=== PATIENT | female | born 1960 | race Caucasian/White ===

== ENCOUNTER 2021-06-27 13:12 | Inpatient (IN) ==
[2021-06-27 15:42] LABS: Basophils % 0.1 %; Hematocrit 25.8 % (35.3-44.9); Immature Granulocytes % 0.7 % (0-4); Lymphocytes # 0.8 K/mcL (0.6-4.6); Lymphocytes % 9.3 %; Mean Corpuscular Hemoglobin 25.9 pg (28.0-33.3); Mean Corpuscular Volume 83.5 fL (83.0-100.0); Mean Platelet Volume 9.8 fL (9.4-12.4); Monocytes # 0.3 K/mcL (0.0-1.3); Monocytes % 2.8 %; Neutrophils # 7.8 K/mcL (1.6-8.9); Platelet Count 433 K/mcL (140-400); Red Blood Count 3.09 M/mcL (3.82-4.97); Red Cell Distribution Width 16.2 % (11.5-14.5); Segmented Neutrophils % 87.1 %
[2021-06-27 15:56] LABS: BUN/Creatinine Ratio 23 (6-26); Blood Urea Nitrogen 25 mg/dL (8-23); Calcium 9.1 mg/dL (8.6-10.3); Carbon Dioxide 25 mEq/L (23-29); Chloride 103 mEq/L (98-107); Glucose 111 mg/dL (70-105); Osmolality,Calculated 291 (280-300); Potassium 4.1 mEq/L (3.5-5.1); Sodium 138 mEq/L (136-145); eGFR For African Americans > 60 (> 60); eGFR For Non-African Americans 51 (> 60)
[2021-06-27 15:57] LABS: Troponin I < 0.03 ng/mL (< 0.04)
[2021-06-27] MEDS ORDERED: levoFLOXacin 750 MG/150 ML 750 MG/150 ML BAG IVPB ONE (18:36)
[2021-06-27] MEDS ORDERED: Naloxone 0.4 MG/ML INJ IVP PRN (23:47)
[2021-06-27] MEDS ORDERED: *HR* HYDROcodone/Acet 5/325 mg TABLET PO PRN (23:47)
[2021-06-27] MEDS ORDERED: Melatonin 3 MG TABLET PO PRN (23:47)
[2021-06-27] MEDS ORDERED: Ondansetron 4 MG/2 ML VIAL IVP PRN (23:47)
[2021-06-27] MEDS ORDERED: Acetaminophen 325 MG TABLET PO PRN (23:47)
[2021-06-27] MEDS ORDERED: Saliva Stimulant 44.3ml BOTTLE PO PRN (23:48)
[2021-06-27] MEDS ORDERED: Saline Nasal Spray 44 ML BOTTLE NS PRN (23:48)
[2021-06-27] MEDS ORDERED: Chloraseptic Spray 177 ML BOTTLE MM PRN (23:48)
[2021-06-27] MEDS ORDERED: [UNRECOGNIZED DRUG - OTHER] PO PRN (23:53)
[2021-06-27] MEDS ORDERED: Sennosides 8.6 MG TABLET PO PRN (23:53)
[2021-06-27] MEDS ORDERED: CHLORPHENIRAMINE PO PRN (23:53)
[2021-06-27] MEDS ORDERED: HYDROCODONE PO PRN (23:53)
[2021-06-28] MEDS ORDERED: *HR* OxyCODONE/APAP 10/325 TABLET PO PRN (00:03)
[2021-06-28] MEDS: Apixaban 2.5 MG TABLET PO SCH ×3 (00:46→20:21)
[2021-06-28] MEDS: Pregabalin 50 MG CAPSULE PO SCH ×3 (00:46→20:21)
[2021-06-28] MEDS: Ipratropium 1 PUFF INHALER IH SCH ×4 (05:11→20:06)
[2021-06-28 06:00] LABS: Basophils % 0.1 %; Eosinophils % 0.3 %; Hematocrit 27.9 % (35.3-44.9); Hemoglobin 8.3 g/dL (11.5-15.4); Immature Granulocytes % 0.5 % (0-4); Lymphocytes # 1.9 K/mcL (0.6-4.6); Lymphocytes % 15.7 %; Mean Corpuscular HGB Conc 29.7 g/dL (31.6-35.5); Mean Corpuscular Hemoglobin 25.5 pg (28.0-33.3); Mean Corpuscular Volume 85.8 fL (83.0-100.0); Mean Platelet Volume 10.2 fL (9.4-12.4); Monocytes # 0.8 K/mcL (0.0-1.3); Monocytes % 7.1 %; Platelet Count 469 K/mcL (140-400); Red Blood Count 3.25 M/mcL (3.82-4.97); Red Cell Distribution Width 16.3 % (11.5-14.5); Segmented Neutrophils % 76.3 %; White Blood Count 11.8 K/mcL (4.3-11.1)
[2021-06-28 06:09] LABS: INR 1.7; Prothrombin Time 18.8 Seconds (9.4-12.1)
[2021-06-28 06:16] LABS: Calcium 9.1 mg/dL (8.6-10.3); Phosphorous 2.9 mg/dL (2.7-4.5); Potassium 3.9 mEq/L (3.5-5.1)
[2021-06-28 07:32] LABS: Lactate Dehydrogenase 377 Units/L (140-271)
[2021-06-28] MEDS: FLUoxetine 20 MG CAPSULE PO SCH (10:39)
[2021-06-28] MEDS: Multivit/Ca/Min/Fe/FA 1 TAB TABLET PO SCH (10:39)
[2021-06-28] MEDS: Aspirin 81 MG TAB.CHEW PO SCH (10:40)
[2021-06-28] MEDS: Lactobacillus 1 EACH CAP.SPRINK PO SCH ×2 (10:40→20:21)
[2021-06-28] MEDS: Chlorhexidine Rinse 15 ML MOUTHWASH MM SCH ×2 (10:40→20:21)
[2021-06-28] MEDS: Cholecalciferol (D-3) 1,000 UNIT (25MCG) TABLET PO SCH (10:40)
[2021-06-28] MEDS: Artificial Tears SOLN 15 ML BOTTLE BOTH EYES SCH ×2 (10:42→20:21)
[2021-06-28] MEDS ORDERED: Dexamethasone Sodium Phos/PF 10 MG/ML VIAL IVP ONE (12:00)
[2021-06-28 13:20] LABS: Albumin 3.5 g/dL (3.5-5.7); Bilirubin,Direct 0.1 mg/dL (0.0-0.2); Bilirubin,Indirect 0.2 mg/dL (0.0-1.0); Bilirubin,Total 0.3 mg/dL (0.3-1.0); Globulin 3.4 g/dL (2.4-3.5); Total Protein 6.9 g/dL (6.4-8.9)
[2021-06-28 13:32] LABS: C-Reactive Protein 44 mg/L (Less than 10)
[2021-06-28] MEDS: ALPRAZolam 0.5 MG TABLET PO PRN (14:18)
[2021-06-28] MEDS ORDERED: Remdesivir 200 MG in 0.9 % Sodium Chloride 100 ML IVPB ONE (16:00)
[2021-06-28] MEDS: SOTORASIB 120 MG PO SCH (18:41)
[2021-06-28] MEDS ORDERED: levoFLOXacin 750 MG/150 ML 750 MG/150 ML BAG IVPB SCH (19:00)
[2021-06-28] MEDS: levoFLOXacin 750 MG/150 ML 750 MG/150 ML BAG IVPB SCH (20:20)
[2021-06-29] MEDS: ALPRAZolam 0.5 MG TABLET PO PRN ×2 (04:34→22:20)
[2021-06-29] MEDS: Ipratropium 1 PUFF INHALER IH SCH ×4 (05:34→19:15)
[2021-06-29 06:13] LABS: Hematocrit 25.8 % (35.3-44.9); Hemoglobin 7.7 g/dL (11.5-15.4); Mean Corpuscular HGB Conc 29.8 g/dL (31.6-35.5); Mean Corpuscular Hemoglobin 25.6 pg (28.0-33.3); Mean Corpuscular Volume 85.7 fL (83.0-100.0); Platelet Count 419 K/mcL (140-400); Red Blood Count 3.01 M/mcL (3.82-4.97); Red Cell Distribution Width 16.2 % (11.5-14.5); White Blood Count 11.4 K/mcL (4.3-11.1)
[2021-06-29 07:34] LABS: Albumin 3.4 g/dL (3.5-5.7); Albumin/Globulin Ratio 1.1 (1.1-2.2); Bilirubin,Direct 0.1 mg/dL (0.0-0.2); Bilirubin,Indirect 0.2 mg/dL (0.0-1.0); Bilirubin,Total 0.3 mg/dL (0.3-1.0); Calcium 9.3 mg/dL (8.6-10.3); Globulin 3.2 g/dL (2.4-3.5); Magnesium 1.9 mg/dL (1.6-2.6); Total Protein 6.6 g/dL (6.4-8.9)
[2021-06-29] MEDS: FLUoxetine 20 MG CAPSULE PO SCH (08:32)
[2021-06-29] MEDS: Multivit/Ca/Min/Fe/FA 1 TAB TABLET PO SCH (08:33)
[2021-06-29] MEDS: Pregabalin 50 MG CAPSULE PO SCH ×2 (08:33→20:29)
[2021-06-29] MEDS: Cholecalciferol (D-3) 1,000 UNIT (25MCG) TABLET PO SCH (08:33)
[2021-06-29] MEDS: Apixaban 2.5 MG TABLET PO SCH ×2 (08:33→20:30)
[2021-06-29] MEDS: Aspirin 81 MG TAB.CHEW PO SCH (08:33)
[2021-06-29] MEDS: Chlorhexidine Rinse 15 ML MOUTHWASH MM SCH ×2 (08:33→20:29)
[2021-06-29] MEDS: Lactobacillus 1 EACH CAP.SPRINK PO SCH ×2 (08:33→20:30)
[2021-06-29] MEDS: Artificial Tears SOLN 15 ML BOTTLE BOTH EYES SCH ×2 (08:33→20:30)
[2021-06-29] MEDS ORDERED: Cholecalciferol (D-3) 1,000 UNIT (25MCG) TABLET PO SCH (09:00)
[2021-06-29] MEDS: SOTORASIB 120 MG PO SCH (14:24)
[2021-06-29] MEDS: Remdesivir 100 MG in 0.9 % Sodium Chloride 100 ML IVPB SCH (17:35)
[2021-06-29] MEDS: levoFLOXacin 750 MG/150 ML 750 MG/150 ML BAG IVPB SCH (20:30)
[2021-06-30] MEDS: Ipratropium 1 PUFF INHALER IH SCH ×4 (03:40→22:12)
[2021-06-30 06:23] LABS: Albumin 3.4 g/dL (3.5-5.7); Albumin/Globulin Ratio 1.1 (1.1-2.2); Bilirubin,Direct 0.1 mg/dL (0.0-0.2); Bilirubin,Indirect 0.2 mg/dL (0.0-1.0); Bilirubin,Total 0.3 mg/dL (0.3-1.0); Total Protein 6.4 g/dL (6.4-8.9)
[2021-06-30] MEDS: Apixaban 2.5 MG TABLET PO SCH ×2 (09:35→20:04)
[2021-06-30] MEDS: Pregabalin 50 MG CAPSULE PO SCH ×2 (09:35→20:05)
[2021-06-30] MEDS: Multivit/Ca/Min/Fe/FA 1 TAB TABLET PO SCH (09:35)
[2021-06-30] MEDS: Lactobacillus 1 EACH CAP.SPRINK PO SCH ×2 (09:35→20:05)
[2021-06-30] MEDS: Aspirin 81 MG TAB.CHEW PO SCH (09:36)
[2021-06-30] MEDS: FLUoxetine 20 MG CAPSULE PO SCH (09:36)
[2021-06-30] MEDS: Chlorhexidine Rinse 15 ML MOUTHWASH MM SCH ×2 (09:36→20:05)
[2021-06-30] MEDS: Cholecalciferol (D-3) 1,000 UNIT (25MCG) TABLET PO SCH (09:36)
[2021-06-30] MEDS: Artificial Tears SOLN 15 ML BOTTLE BOTH EYES SCH ×2 (10:07→20:05)
[2021-06-30 11:18] LABS: Basophils % 0.1 %; Eosinophils % 0.2 %; Hematocrit 27.1 % (35.3-44.9); Hemoglobin 8.4 g/dL (11.5-15.4); Immature Granulocytes % 0.6 % (0-4); Lymphocytes # 1.7 K/mcL (0.6-4.6); Lymphocytes % 9.9 %; Mean Corpuscular Hemoglobin 26.5 pg (28.0-33.3); Mean Corpuscular Volume 85.5 fL (83.0-100.0); Mean Platelet Volume 9.9 fL (9.4-12.4); Monocytes # 1.1 K/mcL (0.0-1.3); Monocytes % 6.2 %; Neutrophils # 14.3 K/mcL (1.6-8.9); Platelet Count 473 K/mcL (140-400); Red Blood Count 3.17 M/mcL (3.82-4.97); Red Cell Distribution Width 16.3 % (11.5-14.5); White Blood Count 17.2 K/mcL (4.3-11.1)
[2021-06-30 11:37] LABS: Albumin 3.5 g/dL (3.5-5.7); Albumin/Globulin Ratio 1.1 (1.1-2.2); Bilirubin,Total 0.3 mg/dL (0.3-1.0); Calcium 9.7 mg/dL (8.6-10.3); Globulin 3.1 g/dL (2.4-3.5); Potassium 3.8 mEq/L (3.5-5.1); Total Protein 6.6 g/dL (6.4-8.9)
[2021-06-30] MEDS: Remdesivir 100 MG in 0.9 % Sodium Chloride 100 ML IVPB SCH (17:24)
[2021-06-30] MEDS: SOTORASIB 120 MG PO SCH (17:42)
[2021-06-30 19:45] LABS: Ferritin 62 ng/mL (10-120)
[2021-06-30] MEDS: levoFLOXacin 750 MG/150 ML 750 MG/150 ML BAG IVPB SCH (20:05)
[2021-06-30] MEDS: ALPRAZolam 0.5 MG TABLET PO PRN (21:51)
[2021-07-01] MEDS: Ipratropium 1 PUFF INHALER IH SCH ×2 (04:03→11:19)
[2021-07-01 05:36] LABS: Hematocrit 25.3 % (35.3-44.9); Hemoglobin 7.8 g/dL (11.5-15.4); Mean Corpuscular HGB Conc 30.8 g/dL (31.6-35.5); Mean Corpuscular Hemoglobin 26.1 pg (28.0-33.3); Mean Corpuscular Volume 84.6 fL (83.0-100.0); Mean Platelet Volume 9.9 fL (9.4-12.4); Platelet Count 417 K/mcL (140-400); Red Blood Count 2.99 M/mcL (3.82-4.97); Red Cell Distribution Width 16.4 % (11.5-14.5); White Blood Count 14.8 K/mcL (4.3-11.1)
[2021-07-01 05:52] LABS: Albumin 3.4 g/dL (3.5-5.7); Albumin/Globulin Ratio 1.2 (1.1-2.2); Bilirubin,Direct 0.1 mg/dL (0.0-0.2); Bilirubin,Indirect 0.2 mg/dL (0.0-1.0); Bilirubin,Total 0.3 mg/dL (0.3-1.0); Globulin 2.9 g/dL (2.4-3.5); Total Protein 6.3 g/dL (6.4-8.9)
[2021-07-01 05:53] LABS: Albumin 3.4 g/dL (3.5-5.7); Albumin/Globulin Ratio 1.2 (1.1-2.2); Bilirubin,Total 0.3 mg/dL (0.3-1.0); Calcium 9.3 mg/dL (8.6-10.3); Globulin 2.9 g/dL (2.4-3.5); Potassium 3.7 mEq/L (3.5-5.1); Total Protein 6.3 g/dL (6.4-8.9)
[2021-07-01] MEDS: Chlorhexidine Rinse 15 ML MOUTHWASH MM SCH (09:15)
[2021-07-01] MEDS: Pregabalin 50 MG CAPSULE PO SCH (09:15)
[2021-07-01] MEDS: FLUoxetine 20 MG CAPSULE PO SCH (09:16)
[2021-07-01] MEDS: Multivit/Ca/Min/Fe/FA 1 TAB TABLET PO SCH (09:16)
[2021-07-01] MEDS: Cholecalciferol (D-3) 1,000 UNIT (25MCG) TABLET PO SCH (09:16)
[2021-07-01] MEDS: Apixaban 2.5 MG TABLET PO SCH (09:16)
[2021-07-01] MEDS: Aspirin 81 MG TAB.CHEW PO SCH (09:16)
[2021-07-01] MEDS: Lactobacillus 1 EACH CAP.SPRINK PO SCH (09:16)
[2021-07-01] MEDS: Artificial Tears SOLN 15 ML BOTTLE BOTH EYES SCH ×2 (09:16→09:46)
[2021-07-01 11:20] VITALS: O2SAT 93
[2021-07-01 12:02] VITALS: BP 109/66; PULSE 86; RESP 17; TEMP 97.5
== END 2021-07-01 13:54 | disposition other institution (70) | DRG 177 ==
LOC: EMEROOGRE 13:12 → INPGRE 13:12
PROVIDERS: ADMIT Family Medicine; ATTEND Family Medicine

== ENCOUNTER 2021-07-01 13:18 | Inpatient (IN) ==
[2021-07-01] MEDS ORDERED: *HR* OxyCODONE/APAP 10/325 TABLET PO PRN (14:09)
[2021-07-01] MEDS ORDERED: Nystatin SUSP 5 ML UD.LIQ PO PRN (14:09)
[2021-07-01] MEDS ORDERED: Diphenoxylate/Atropine 1 TAB TABLET PO PRN (14:09)
[2021-07-01] MEDS ORDERED: Ondansetron ODT 4 MG TAB.RAPDIS SL PRN (14:09)
[2021-07-01] MEDS ORDERED: [UNRECOGNIZED DRUG - OTHER] PO PRN (15:00)
[2021-07-01] MEDS ORDERED: CHLORPHENIRAMINE PO PRN (15:00)
[2021-07-01] MEDS ORDERED: HYDROCODONE PO PRN (15:00)
[2021-07-01] MEDS ORDERED: *HR* HYDROcodone/Acet 5/325 mg TABLET PO PRN (15:01)
[2021-07-01] MEDS ORDERED: Remdesivir 200 MG in 0.9 % Sodium Chloride 100 ML IVPB ONE (16:00)
[2021-07-01] MEDS: Remdesivir 100 MG in 0.9 % Sodium Chloride 100 ML IVPB SCH (17:12)
[2021-07-01] MEDS: Pregabalin 50 MG CAPSULE PO SCH (21:27)
[2021-07-01] MEDS: Apixaban 2.5 MG TABLET PO SCH (21:27)
[2021-07-01] MEDS ORDERED: levoFLOXacin 750 MG/150 ML 750 MG/150 ML BAG IVPB SCH (23:00)
[2021-07-02 04:49] LABS: Basophils % 0.1 %; Hemoglobin 7.8 g/dL (11.5-15.4); Immature Granulocytes % 0.7 % (0-4); Lymphocytes # 1.3 K/mcL (0.6-4.6); Mean Corpuscular HGB Conc 31.2 g/dL (31.6-35.5); Mean Corpuscular Hemoglobin 26.3 pg (28.0-33.3); Mean Corpuscular Volume 84.2 fL (83.0-100.0); Mean Platelet Volume 10.2 fL (9.4-12.4); Neutrophils # 14.2 K/mcL (1.6-8.9); Platelet Count 430 K/mcL (140-400); Red Blood Count 2.97 M/mcL (3.82-4.97); Red Cell Distribution Width 16.5 % (11.5-14.5); Segmented Neutrophils % 85.2 %; White Blood Count 16.7 K/mcL (4.3-11.1)
[2021-07-02 05:01] LABS: Albumin 3.4 g/dL (3.5-5.7); Albumin/Globulin Ratio 1.2 (1.1-2.2); Bilirubin,Direct 0.1 mg/dL (0.0-0.2); Bilirubin,Indirect 0.2 mg/dL (0.0-1.0); Bilirubin,Total 0.3 mg/dL (0.3-1.0); Globulin 2.9 g/dL (2.4-3.5); Total Protein 6.3 g/dL (6.4-8.9)
[2021-07-02 05:02] LABS: Calcium 9.3 mg/dL (8.6-10.3); Potassium 3.9 mEq/L (3.5-5.1)
[2021-07-02] MEDS: Apixaban 2.5 MG TABLET PO SCH ×2 (08:49→21:06)
[2021-07-02] MEDS: Lactobacillus 1 EACH CAP.SPRINK PO SCH (08:49)
[2021-07-02] MEDS: FLUoxetine 20 MG CAPSULE PO SCH (08:49)
[2021-07-02] MEDS: Aspirin 81 MG TAB.CHEW PO SCH (08:49)
[2021-07-02] MEDS: Vitamin B Complex/Vit C/Vit E 1 EACH TABLET PO SCH (08:49)
[2021-07-02] MEDS: Pregabalin 50 MG CAPSULE PO SCH ×2 (08:50→21:06)
[2021-07-02] MEDS: dexAMETHasone 4 MG TABLET PO SCH (08:50)
[2021-07-02] MEDS: TURMERIC ROOT EXTRACT 500 MG PO SCH (08:55)
[2021-07-02] MEDS: Sennosides 8.6 MG TABLET PO PRN (08:55)
[2021-07-02] MEDS: LEVOCARNITINE TARTRATE 500 MG PO SCH (08:55)
[2021-07-02] MEDS: Ubidecarenone [Co Q-10] 10 MG Capsule PO SCH (08:55)
[2021-07-02] MEDS ORDERED: levoFLOXacin 750 MG/150 ML 750 MG/150 ML BAG IVPB SCH (09:00)
[2021-07-02] MEDS: Remdesivir 100 MG in 0.9 % Sodium Chloride 100 ML IVPB SCH (16:50)
[2021-07-03 04:47] LABS: Albumin 3.3 g/dL (3.5-5.7); Albumin/Globulin Ratio 1.1 (1.1-2.2); Bilirubin,Direct 0.1 mg/dL (0.0-0.2); Bilirubin,Indirect 0.2 mg/dL (0.0-1.0); Bilirubin,Total 0.3 mg/dL (0.3-1.0); Globulin 2.9 g/dL (2.4-3.5); Total Protein 6.2 g/dL (6.4-8.9)
[2021-07-03] MEDS: Vitamin B Complex/Vit C/Vit E 1 EACH TABLET PO SCH (07:48)
[2021-07-03] MEDS: dexAMETHasone 4 MG TABLET PO SCH (07:48)
[2021-07-03] MEDS: Lactobacillus 1 EACH CAP.SPRINK PO SCH (07:48)
[2021-07-03] MEDS: Sennosides 8.6 MG TABLET PO PRN (07:48)
[2021-07-03] MEDS: Pregabalin 50 MG CAPSULE PO SCH ×2 (07:49→20:12)
[2021-07-03] MEDS: TURMERIC ROOT EXTRACT 500 MG PO SCH (07:49)
[2021-07-03] MEDS: Apixaban 2.5 MG TABLET PO SCH ×2 (07:49→20:12)
[2021-07-03] MEDS: Ubidecarenone [Co Q-10] 10 MG Capsule PO SCH (07:49)
[2021-07-03] MEDS: Aspirin 81 MG TAB.CHEW PO SCH (07:49)
[2021-07-03] MEDS: FLUoxetine 20 MG CAPSULE PO SCH (07:49)
[2021-07-03] MEDS: LEVOCARNITINE TARTRATE 500 MG PO SCH (07:49)
[2021-07-04 05:42] LABS: Basophils % 0.1 %; Eosinophils % 0.1 %; Hematocrit 25.3 % (35.3-44.9); Hemoglobin 7.9 g/dL (11.5-15.4); Immature Granulocytes % 0.7 % (0-4); Lymphocytes # 1.5 K/mcL (0.6-4.6); Lymphocytes % 7.7 %; Mean Corpuscular HGB Conc 31.2 g/dL (31.6-35.5); Mean Corpuscular Hemoglobin 26.4 pg (28.0-33.3); Mean Corpuscular Volume 84.6 fL (83.0-100.0); Mean Platelet Volume 10.2 fL (9.4-12.4); Neutrophils # 16.3 K/mcL (1.6-8.9); Platelet Count 375 K/mcL (140-400); Red Blood Count 2.99 M/mcL (3.82-4.97); Red Cell Distribution Width 16.7 % (11.5-14.5); Segmented Neutrophils % 84.4 %; White Blood Count 19.3 K/mcL (4.3-11.1)
[2021-07-04 05:56] LABS: BUN/Creatinine Ratio 34 (6-26); Blood Urea Nitrogen 35 mg/dL (8-23); Calcium 8.9 mg/dL (8.6-10.3); Carbon Dioxide 28 mEq/L (23-29); Chloride 103 mEq/L (98-107); Glucose 90 mg/dL (70-105); Magnesium 1.8 mg/dL (1.6-2.6); Osmolality,Calculated 294 (280-300); Potassium 3.5 mEq/L (3.5-5.1); Sodium 138 mEq/L (136-145); eGFR For African Americans > 60 (> 60); eGFR For Non-African Americans 54 (> 60)
[2021-07-04 05:57] LABS: Albumin 3.2 g/dL (3.5-5.7); Albumin/Globulin Ratio 1.1 (1.1-2.2); Bilirubin,Indirect 0.3 mg/dL (0.0-1.0); Bilirubin,Total 0.3 mg/dL (0.3-1.0); Globulin 2.8 g/dL (2.4-3.5)
[2021-07-04 07:03] LABS: Monocytes # 1.4 K/mcL (0.0-1.3)
[2021-07-04] MEDS: Cholecalciferol (D-3) 1,000 UNIT (25MCG) TABLET PO SCH (08:56)
[2021-07-04] MEDS: Lactobacillus 1 EACH CAP.SPRINK PO SCH (08:56)
[2021-07-04] MEDS: Vitamin B Complex/Vit C/Vit E 1 EACH TABLET PO SCH (08:56)
[2021-07-04] MEDS: Apixaban 2.5 MG TABLET PO SCH ×2 (08:57→20:23)
[2021-07-04] MEDS: dexAMETHasone 4 MG TABLET PO SCH (08:57)
[2021-07-04] MEDS: Pregabalin 50 MG CAPSULE PO SCH ×2 (08:57→20:23)
[2021-07-04] MEDS: Aspirin 81 MG TAB.CHEW PO SCH (08:57)
[2021-07-04] MEDS: FLUoxetine 20 MG CAPSULE PO SCH (08:57)
[2021-07-04] MEDS: TURMERIC ROOT EXTRACT 500 MG PO SCH (08:58)
[2021-07-04] MEDS: LEVOCARNITINE TARTRATE 500 MG PO SCH (08:58)
[2021-07-04] MEDS: Ubidecarenone [Co Q-10] 10 MG Capsule PO SCH (08:58)
[2021-07-04] MEDS: Acetaminophen 325 MG TABLET PO PRN (16:03)
[2021-07-05 05:47] LABS: Albumin 3.3 g/dL (3.5-5.7); Albumin/Globulin Ratio 1.2 (1.1-2.2); Bilirubin,Direct 0.1 mg/dL (0.0-0.2); Bilirubin,Indirect 0.3 mg/dL (0.0-1.0); Bilirubin,Total 0.4 mg/dL (0.3-1.0); Globulin 2.7 g/dL (2.4-3.5)
[2021-07-05] MEDS: Aspirin 81 MG TAB.CHEW PO SCH (09:35)
[2021-07-05] MEDS: Acetaminophen 325 MG TABLET PO PRN (09:35)
[2021-07-05] MEDS: Vitamin B Complex/Vit C/Vit E 1 EACH TABLET PO SCH (09:36)
[2021-07-05] MEDS: Lactobacillus 1 EACH CAP.SPRINK PO SCH (09:36)
[2021-07-05] MEDS: Sennosides 8.6 MG TABLET PO PRN (09:36)
[2021-07-05] MEDS: FLUoxetine 20 MG CAPSULE PO SCH (09:36)
[2021-07-05] MEDS: dexAMETHasone 4 MG TABLET PO SCH (09:36)
[2021-07-05] MEDS: Pregabalin 50 MG CAPSULE PO SCH ×2 (09:37→20:35)
[2021-07-05] MEDS: Apixaban 2.5 MG TABLET PO SCH ×2 (09:37→20:35)
[2021-07-06 06:23] LABS: Hematocrit 24.1 % (35.3-44.9); Hemoglobin 7.7 g/dL (11.5-15.4); Mean Corpuscular Hemoglobin 26.5 pg (28.0-33.3); Mean Corpuscular Volume 82.8 fL (83.0-100.0); Mean Platelet Volume 9.9 fL (9.4-12.4); Platelet Count 330 K/mcL (140-400); Red Blood Count 2.91 M/mcL (3.82-4.97); Red Cell Distribution Width 16.8 % (11.5-14.5); White Blood Count 18.8 K/mcL (4.3-11.1)
[2021-07-06 06:42] LABS: Albumin 3.2 g/dL (3.5-5.7); Albumin/Globulin Ratio 1.2 (1.1-2.2); Bilirubin,Direct 0.1 mg/dL (0.0-0.2); Bilirubin,Indirect 0.3 mg/dL (0.0-1.0); Bilirubin,Total 0.4 mg/dL (0.3-1.0); Globulin 2.6 g/dL (2.4-3.5); Total Protein 5.8 g/dL (6.4-8.9)
[2021-07-06 06:45] LABS: Alanine Aminotransferase 14 Units/L (7-52); Albumin 3.2 g/dL (3.5-5.7); Albumin/Globulin Ratio 1.2 (1.1-2.2); Alkaline Phosphatase 66 Units/L (34-104); Aspartate Amino Transferase 18 Units/L (13-39); BUN/Creatinine Ratio 30 (6-26); Bilirubin,Total 0.4 mg/dL (0.3-1.0); Blood Urea Nitrogen 32 mg/dL (8-23); Calcium 8.9 mg/dL (8.6-10.3); Carbon Dioxide 30 mEq/L (23-29); Chloride 103 mEq/L (98-107); Globulin 2.6 g/dL (2.4-3.5); Glucose 80 mg/dL (70-105); Magnesium 1.7 mg/dL (1.6-2.6); Osmolality,Calculated 292 (280-300); Potassium 3.6 mEq/L (3.5-5.1); Sodium 138 mEq/L (136-145); Total Protein 5.8 g/dL (6.4-8.9); eGFR For African Americans > 60 (> 60); eGFR For Non-African Americans 51 (> 60)
[2021-07-06] MEDS: Vitamin B Complex/Vit C/Vit E 1 EACH TABLET PO SCH (09:47)
[2021-07-06] MEDS: Cholecalciferol (D-3) 1,000 UNIT (25MCG) TABLET PO SCH (09:47)
[2021-07-06] MEDS: Pregabalin 50 MG CAPSULE PO SCH ×2 (09:47→20:22)
[2021-07-06] MEDS: Sennosides 8.6 MG TABLET PO PRN ×2 (09:48→20:21)
[2021-07-06] MEDS: Lactobacillus 1 EACH CAP.SPRINK PO SCH (09:48)
[2021-07-06] MEDS: Apixaban 2.5 MG TABLET PO SCH ×2 (09:48→20:22)
[2021-07-06] MEDS: Aspirin 81 MG TAB.CHEW PO SCH (09:49)
[2021-07-06] MEDS: FLUoxetine 20 MG CAPSULE PO SCH (09:49)
[2021-07-07] MEDS: Vitamin B Complex/Vit C/Vit E 1 EACH TABLET PO SCH (08:40)
[2021-07-07] MEDS: Aspirin 81 MG TAB.CHEW PO SCH (08:40)
[2021-07-07] MEDS: FLUoxetine 20 MG CAPSULE PO SCH (08:40)
[2021-07-07] MEDS: Apixaban 2.5 MG TABLET PO SCH ×2 (08:41→20:55)
[2021-07-07] MEDS: Lactobacillus 1 EACH CAP.SPRINK PO SCH (08:41)
[2021-07-07] MEDS: Pregabalin 50 MG CAPSULE PO SCH ×2 (08:42→20:54)
[2021-07-07] MEDS: Sennosides 8.6 MG TABLET PO PRN (09:08)
[2021-07-07] MEDS: polyethylene glycoL 3350 17 GM POWD.PACK PO SCH (20:54)
[2021-07-07] MEDS: Acetaminophen 325 MG TABLET PO PRN (20:55)
[2021-07-08] MEDS: FLUoxetine 20 MG CAPSULE PO SCH (08:41)
[2021-07-08] MEDS: Cholecalciferol (D-3) 1,000 UNIT (25MCG) TABLET PO SCH (08:41)
[2021-07-08] MEDS: Apixaban 2.5 MG TABLET PO SCH ×2 (08:41→20:20)
[2021-07-08] MEDS: Lactobacillus 1 EACH CAP.SPRINK PO SCH (08:41)
[2021-07-08] MEDS: Pregabalin 50 MG CAPSULE PO SCH ×2 (08:41→20:20)
[2021-07-08] MEDS: Vitamin B Complex/Vit C/Vit E 1 EACH TABLET PO SCH (08:42)
[2021-07-08] MEDS: Aspirin 81 MG TAB.CHEW PO SCH (08:42)
[2021-07-08] MEDS: polyethylene glycoL 3350 17 GM POWD.PACK PO SCH ×2 (08:42→19:19)
[2021-07-08 11:32] LABS: Bilirubin,Urine Negative (Negative); Blood,Urine Small (Negative); Clarity,Urine Clear (Clear); Color,Urine Yellow (Yellow); Glucose,Urine (UA) Normal (Normal); Ketones,Urine Negative (Negative); Leukocyte Esterase,Urine Negative (Negative); Nitrite,Urine Negative (Negative); Protein,Urine 30 mg/dL (Neg-Trace); Urobilinogen,Urine Normal (Normal)
[2021-07-08 11:39] LABS: WBC,Urine 0-3 per hpf (0-3)
[2021-07-08 11:40] LABS: Squamous Epithelial Cell,Urine Few per hpf (None-Few)
[2021-07-08] MEDS: Acetaminophen 325 MG TABLET PO PRN (20:19)
[2021-07-09] MEDS: Aspirin 81 MG TAB.CHEW PO SCH (07:48)
[2021-07-09] MEDS: FLUoxetine 20 MG CAPSULE PO SCH (07:48)
[2021-07-09] MEDS: Vitamin B Complex/Vit C/Vit E 1 EACH TABLET PO SCH (07:48)
[2021-07-09] MEDS: Apixaban 2.5 MG TABLET PO SCH ×2 (07:49→20:56)
[2021-07-09] MEDS: Lactobacillus 1 EACH CAP.SPRINK PO SCH (07:49)
[2021-07-09] MEDS: polyethylene glycoL 3350 17 GM POWD.PACK PO SCH ×2 (07:49→20:51)
[2021-07-09] MEDS: Pregabalin 50 MG CAPSULE PO SCH ×2 (07:49→20:55)
[2021-07-10] MEDS: Aspirin 81 MG TAB.CHEW PO SCH (09:05)
[2021-07-10] MEDS: Lactobacillus 1 EACH CAP.SPRINK PO SCH (09:05)
[2021-07-10] MEDS: Vitamin B Complex/Vit C/Vit E 1 EACH TABLET PO SCH (09:05)
[2021-07-10] MEDS: polyethylene glycoL 3350 17 GM POWD.PACK PO SCH ×2 (09:05→21:23)
[2021-07-10] MEDS: Apixaban 2.5 MG TABLET PO SCH ×2 (09:06→21:20)
[2021-07-10] MEDS: FLUoxetine 20 MG CAPSULE PO SCH (09:06)
[2021-07-10] MEDS: Pregabalin 50 MG CAPSULE PO SCH ×2 (09:07→21:20)
[2021-07-10] MEDS: ALPRAZolam 0.5 MG TABLET PO PRN (21:22)
[2021-07-10] MEDS: Acetaminophen 325 MG TABLET PO PRN (21:23)
[2021-07-11 05:14] LABS: Basophils % 0.2 %; Eosinophils # 0.2 K/mcL (0.0-0.6); Hematocrit 20.9 % (35.3-44.9); Hemoglobin 6.5 g/dL (11.5-15.4); Immature Granulocytes % 0.4 % (0-4); Lymphocytes # 0.9 K/mcL (0.6-4.6); Lymphocytes % 5.6 %; Mean Corpuscular HGB Conc 31.1 g/dL (31.6-35.5); Mean Corpuscular Volume 83.6 fL (83.0-100.0); Mean Platelet Volume 10.1 fL (9.4-12.4); Monocytes # 1.3 K/mcL (0.0-1.3); Monocytes % 8.5 %; Neutrophils # 12.9 K/mcL (1.6-8.9); Platelet Count 302 K/mcL (140-400); Red Cell Distribution Width 17.2 % (11.5-14.5); Segmented Neutrophils % 84.3 %; White Blood Count 15.3 K/mcL (4.3-11.1)
[2021-07-11 05:35] LABS: Alanine Aminotransferase 11 Units/L (7-52); Albumin/Globulin Ratio 1.1 (1.1-2.2); Alkaline Phosphatase 69 Units/L (34-104); Aspartate Amino Transferase 16 Units/L (13-39); BUN/Creatinine Ratio 17 (6-26); Bilirubin,Total 0.4 mg/dL (0.3-1.0); Blood Urea Nitrogen 17 mg/dL (8-23); Calcium 8.8 mg/dL (8.6-10.3); Carbon Dioxide 28 mEq/L (23-29); Chloride 102 mEq/L (98-107); Globulin 2.8 g/dL (2.4-3.5); Glucose 96 mg/dL (70-105); Osmolality,Calculated 285 (280-300); Potassium 3.5 mEq/L (3.5-5.1); Sodium 137 mEq/L (136-145); Total Protein 5.8 g/dL (6.4-8.9); eGFR For African Americans > 60 (> 60); eGFR For Non-African Americans 58 (> 60)
[2021-07-11] MEDS: FLUoxetine 20 MG CAPSULE PO SCH (08:18)
[2021-07-11] MEDS: Cholecalciferol (D-3) 1,000 UNIT (25MCG) TABLET PO SCH (08:18)
[2021-07-11] MEDS: Apixaban 2.5 MG TABLET PO SCH ×2 (08:18→22:21)
[2021-07-11] MEDS: Vitamin B Complex/Vit C/Vit E 1 EACH TABLET PO SCH (08:18)
[2021-07-11] MEDS: Aspirin 81 MG TAB.CHEW PO SCH (08:18)
[2021-07-11] MEDS: Lactobacillus 1 EACH CAP.SPRINK PO SCH (08:18)
[2021-07-11] MEDS: Pregabalin 50 MG CAPSULE PO SCH ×2 (08:19→22:21)
[2021-07-11] MEDS: polyethylene glycoL 3350 17 GM POWD.PACK PO SCH ×2 (08:19→22:21)
[2021-07-11] MEDS ORDERED: 0.9 % Sodium Chloride 250 ML ONE (12:28)
[2021-07-11] MEDS: Acetaminophen 325 MG TABLET PO PRN (22:22)
[2021-07-12 05:11] LABS: Basophils % 0.2 %; Eosinophils # 0.1 K/mcL (0.0-0.6); Eosinophils % 0.4 %; Hematocrit 25.4 % (35.3-44.9); Immature Granulocytes % 0.6 % (0-4); Lymphocytes # 0.9 K/mcL (0.6-4.6); Lymphocytes % 4.9 %; Mean Corpuscular HGB Conc 31.5 g/dL (31.6-35.5); Mean Corpuscular Hemoglobin 26.7 pg (28.0-33.3); Mean Corpuscular Volume 84.7 fL (83.0-100.0); Monocytes # 1.4 K/mcL (0.0-1.3); Monocytes % 7.5 %; Neutrophils # 16.2 K/mcL (1.6-8.9); Platelet Count 305 K/mcL (140-400); Red Cell Distribution Width 16.6 % (11.5-14.5); Segmented Neutrophils % 86.4 %; White Blood Count 18.8 K/mcL (4.3-11.1)
[2021-07-12 05:28] LABS: Alanine Aminotransferase 10 Units/L (7-52); Alkaline Phosphatase 75 Units/L (34-104); Aspartate Amino Transferase 15 Units/L (13-39); BUN/Creatinine Ratio 14 (6-26); Bilirubin,Total 0.6 mg/dL (0.3-1.0); Blood Urea Nitrogen 14 mg/dL (8-23); Carbon Dioxide 27 mEq/L (23-29); Chloride 101 mEq/L (98-107); Globulin 2.9 g/dL (2.4-3.5); Glucose 106 mg/dL (70-105); Osmolality,Calculated 285 (280-300); Potassium 3.4 mEq/L (3.5-5.1); Sodium 137 mEq/L (136-145); Total Protein 5.9 g/dL (6.4-8.9); eGFR For African Americans > 60 (> 60); eGFR For Non-African Americans 57 (> 60)
[2021-07-12 08:11] LABS: Iron 11 mcg/dL (50-170)
[2021-07-12 08:30] LABS: Ferritin 135 ng/mL (10-120)
[2021-07-12] MEDS: Vitamin B Complex/Vit C/Vit E 1 EACH TABLET PO SCH (08:48)
[2021-07-12] MEDS: Aspirin 81 MG TAB.CHEW PO SCH (08:48)
[2021-07-12] MEDS: Apixaban 2.5 MG TABLET PO SCH ×2 (08:48→20:19)
[2021-07-12] MEDS: Lactobacillus 1 EACH CAP.SPRINK PO SCH (08:48)
[2021-07-12] MEDS: Pregabalin 50 MG CAPSULE PO SCH ×2 (08:48→20:19)
[2021-07-12] MEDS: FLUoxetine 20 MG CAPSULE PO SCH (08:48)
[2021-07-12] MEDS: polyethylene glycoL 3350 17 GM POWD.PACK PO SCH ×2 (08:49→20:20)
[2021-07-12] MEDS: ALPRAZolam 0.5 MG TABLET PO PRN (20:19)
[2021-07-12] MEDS: Acetaminophen 325 MG TABLET PO PRN (20:19)
[2021-07-13] MEDS: Pregabalin 50 MG CAPSULE PO SCH ×2 (07:41→21:03)
[2021-07-13] MEDS: Lactobacillus 1 EACH CAP.SPRINK PO SCH (07:41)
[2021-07-13] MEDS: FLUoxetine 20 MG CAPSULE PO SCH (07:41)
[2021-07-13] MEDS: Vitamin B Complex/Vit C/Vit E 1 EACH TABLET PO SCH (07:41)
[2021-07-13] MEDS: Cholecalciferol (D-3) 1,000 UNIT (25MCG) TABLET PO SCH (07:41)
[2021-07-13] MEDS: Apixaban 2.5 MG TABLET PO SCH ×2 (07:41→21:03)
[2021-07-13] MEDS: Aspirin 81 MG TAB.CHEW PO SCH (07:41)
[2021-07-13] MEDS: polyethylene glycoL 3350 17 GM POWD.PACK PO SCH ×2 (07:42→21:04)
[2021-07-13] MEDS: Acetaminophen 325 MG TABLET PO PRN (11:55)
[2021-07-13] MEDS: Iron Sucrose Complex 200 MG in 0.9 % Sodium Chloride 100 ML IVPB SCH (12:51)
[2021-07-13] MEDS ORDERED: Bisacodyl 10 MG RECTAL SUPPOSITORY RC SCH (21:00)
[2021-07-13] MEDS: Simethicone 80 MG TAB.CHEW PO SCH (21:03)
[2021-07-14] MEDS: polyethylene glycoL 3350 17 GM POWD.PACK PO SCH (08:54)
[2021-07-14] MEDS: Simethicone 80 MG TAB.CHEW PO SCH ×2 (08:55→14:54)
[2021-07-14] MEDS: Iron Sucrose Complex 200 MG in 0.9 % Sodium Chloride 100 ML IVPB SCH (08:55)
[2021-07-14] MEDS: Aspirin 81 MG TAB.CHEW PO SCH (08:55)
[2021-07-14] MEDS: Lactobacillus 1 EACH CAP.SPRINK PO SCH (08:55)
[2021-07-14] MEDS: FLUoxetine 20 MG CAPSULE PO SCH (08:55)
[2021-07-14] MEDS: Apixaban 2.5 MG TABLET PO SCH (08:56)
[2021-07-14] MEDS: Pregabalin 50 MG CAPSULE PO SCH (08:56)
[2021-07-14] MEDS: Vitamin B Complex/Vit C/Vit E 1 EACH TABLET PO SCH (08:56)
[2021-07-14 14:54] VITALS: RESP 18
[2021-07-14 22:53] VITALS: PULSE 77; TEMP 98.5; O2SAT 87
[2021-07-14 22:54] VITALS: BP 128/68
[2021-07-15 10:22] LABS: % Iron Saturation 4 % (15-50); Transferrin 196 mg/dL (200-400)
== END 2021-07-14 19:36 | disposition home health service (06) | DRG 177 ==
LOC: INPGRE 14:04
PROVIDERS: ADMIT Family Medicine; ATTEND Family Medicine

== ENCOUNTER 2021-07-18 08:01 | Inpatient (IN) ==
[2021-07-18 08:43] LABS: Basophils % 0.1 %; Hematocrit 23.2 % (35.3-44.9); Hemoglobin 6.7 g/dL (11.5-15.4); Immature Granulocytes % 1.2 % (0-4); Lymphocytes # 1.1 K/mcL (0.6-4.6); Lymphocytes % 4.6 %; Mean Corpuscular HGB Conc 28.9 g/dL (31.6-35.5); Mean Corpuscular Hemoglobin 27.1 pg (28.0-33.3); Mean Corpuscular Volume 93.9 fL (83.0-100.0); Monocytes # 1.2 K/mcL (0.0-1.3); Monocytes % 4.7 %; Neutrophils # 22.2 K/mcL (1.6-8.9); Nucleated Red Blood Cells 0.4 /100 WBC (0); Platelet Count 460 K/mcL (140-400); Red Blood Count 2.47 M/mcL (3.82-4.97); Red Cell Distribution Width 19.1 % (11.5-14.5); Segmented Neutrophils % 89.4 %; White Blood Count 24.8 K/mcL (4.3-11.1)
[2021-07-18 08:49] LABS: INR 1.8; Prothrombin Time 19.8 Seconds (9.4-12.1)
[2021-07-18 08:52] LABS: Activated Partial Thrombo Time 28.5 Seconds (26.0-36.0)
[2021-07-18] MEDS ORDERED: Ipratropium/Albuterol Neb 3 ML IH ONE (08:56)
[2021-07-18 08:58] LABS: VBG HCO3 30 mEq/L (21-27); VBG PCO2 68 mmHg (41-51); VBG PH 7.25 pH Units (7.32-7.42); VBG PO2 37 mmHg (25-50)
[2021-07-18 09:03] LABS: Platelet Estimate Increased (Normal); Toxic Granulation Present (Not Present); Toxic Vacuolation Present (Not Present)
[2021-07-18 09:05] LABS: Albumin 3.3 g/dL (3.5-5.7); Albumin/Globulin Ratio 1.1 (1.1-2.2); Bilirubin,Direct 0.1 mg/dL (0.0-0.2); Bilirubin,Indirect 0.3 mg/dL (0.0-1.0); Bilirubin,Total 0.4 mg/dL (0.3-1.0); Calcium 9.2 mg/dL (8.6-10.3); Potassium 4.3 mEq/L (3.5-5.1); Total Protein 6.3 g/dL (6.4-8.9); Troponin I 0.04 ng/mL (< 0.04)
[2021-07-18] MEDS ORDERED: 0.9 % Sodium Chloride 1,000 ML IV ONE (09:20)
[2021-07-18] MEDS ORDERED: Azithromycin 500 MG in 0.9 % Sodium Chloride 250 ML IVPB ONE (09:21)
[2021-07-18] MEDS ORDERED: cefTRIAXone 1,000 MG in 0.9 % Sodium Chloride Mini Bag 100 ML IVPB ONE (09:21)
[2021-07-18 10:10] LABS: ABG Base Excess 3 mEq/L (-2 to 3); ABG HCO3 31 mEq/L (21-27); ABG Oxygen Saturation 77 % (95-98); ABG PCO2 62 mmHg (35-45); ABG PH 7.31 pH Units (7.32-7.45); ABG PO2 47 mmHg (85-104); ABG TCO2 33 mEq/L (20-26)
[2021-07-18] MEDS ORDERED: *HR* Heparin 5,000 UNIT/ML VIAL IVP ONE (11:37)
[2021-07-18] MEDS ORDERED: *HR* Heparin 5,000 UNIT/ML VIAL IVP PRN ×2 (11:37)
[2021-07-18] MEDS ORDERED: Heparin 25,000UNIT/250ML 1/2NS 25,000 UNIT/250 ML IV.SOLN IVC SCH (11:45)
[2021-07-18] MEDS ORDERED: Acetaminophen 325 MG TABLET PO PRN (15:31)
[2021-07-18] MEDS ORDERED: Melatonin 3 MG TABLET PO PRN (15:31)
[2021-07-18] MEDS ORDERED: Ondansetron 4 MG/2 ML VIAL IVP PRN (15:31)
[2021-07-18] MEDS ORDERED: Mag Hydrox/Al Hydrox/Simeth 30 ML UDC PO PRN (15:31)
[2021-07-18] MEDS ORDERED: Ondansetron ODT 4 MG TAB.RAPDIS SL PRN (15:31)
[2021-07-18] MEDS ORDERED: Naloxone 0.4 MG/ML INJ IVP PRN (15:31)
[2021-07-18] MEDS ORDERED: MOM Conc 10 ML UD.LIQ PO PRN (15:31)
[2021-07-18] MEDS ORDERED: 0.9 % Sodium Chloride 250 ML IVC SCH (16:45)
[2021-07-18] MEDS: 0.9 % Sodium Chloride 1,000 ML IVC SCH (18:29)
[2021-07-18] MEDS ORDERED: Ipratropium/Albuterol Neb 3 ML IH SCH (20:00)
[2021-07-18] MEDS: Ipratropium 1 PUFF INHALER IH SCH (20:54)
[2021-07-18] MEDS: *HR* HYDROcodone/Acet 5/325 mg TABLET PO PRN (21:42)
[2021-07-19] MEDS: Ipratropium 1 PUFF INHALER IH SCH ×6 (00:15→20:03)
[2021-07-19 05:36] LABS: Basophils % 0.1 %; Hematocrit 25.2 % (35.3-44.9); Hemoglobin 7.7 g/dL (11.5-15.4); Immature Granulocytes % 1.6 % (0-4); Lymphocytes # 0.9 K/mcL (0.6-4.6); Lymphocytes % 4.1 %; Mean Corpuscular HGB Conc 30.6 g/dL (31.6-35.5); Mean Corpuscular Hemoglobin 27.3 pg (28.0-33.3); Mean Corpuscular Volume 89.4 fL (83.0-100.0); Mean Platelet Volume 9.3 fL (9.4-12.4); Monocytes # 1.2 K/mcL (0.0-1.3); Monocytes % 5.2 %; Nucleated Red Blood Cells 0.5 /100 WBC (0); Platelet Count 408 K/mcL (140-400); Red Blood Count 2.82 M/mcL (3.82-4.97); White Blood Count 22.5 K/mcL (4.3-11.1)
[2021-07-19 05:51] LABS: Albumin 3.2 g/dL (3.5-5.7); Albumin/Globulin Ratio 1.1 (1.1-2.2); Bilirubin,Total 0.4 mg/dL (0.3-1.0); Calcium 8.4 mg/dL (8.6-10.3); Globulin 2.8 g/dL (2.4-3.5); Phosphorous 2.7 mg/dL (2.7-4.5); Potassium 4.3 mEq/L (3.5-5.1)
[2021-07-19] MEDS: Azithromycin 500 MG in 0.9 % Sodium Chloride 250 ML IVPB SCH ×2 (09:26→11:27)
[2021-07-19] MEDS: *HR* HYDROcodone/Acet 5/325 mg TABLET PO PRN ×2 (09:39→20:22)
[2021-07-19] MEDS: cefTRIAXone 1,000 MG in 0.9 % Sodium Chloride Mini Bag 100 ML IVPB SCH (09:44)
[2021-07-19] MEDS: 0.9 % Sodium Chloride 1,000 ML IVC SCH (10:04)
[2021-07-19 18:39] LABS: Bilirubin,Urine Negative (Negative); Blood,Urine Small (Negative); Clarity,Urine Slightly Cloudy (Clear); Glucose,Urine (UA) Normal (Normal); Ketones,Urine Negative (Negative); Leukocyte Esterase,Urine Negative (Negative); Nitrite,Urine Negative (Negative); PH,Urine 5.5 pH Units (5.0-8.0); Protein,Urine 30 mg/dL (Neg-Trace); Specific Gravity,Urine >= 1.030 (1.010-1.025); Urobilinogen,Urine Normal (Normal)
[2021-07-19 18:52] LABS: Amorphous Sediment,Urine Few per hpf (None-Few); Color,Urine Yellow (Yellow); Squamous Epithelial Cell,Urine Few per hpf (None-Few)
[2021-07-19] MEDS: Apixaban 2.5 MG TABLET PO SCH (20:22)
[2021-07-19] MEDS: Pregabalin 50 MG CAPSULE PO SCH (20:23)
[2021-07-20] MEDS: Ipratropium 1 PUFF INHALER IH SCH ×3 (00:41→08:12)
[2021-07-20] MEDS ORDERED: Morphine Sulfate 2 MG/ML SYRINGE IH ONE (02:12)
[2021-07-20] MEDS ORDERED: *HR* LORazepam 2 MG/ML VIAL IVP ONE (02:53)
[2021-07-20] MEDS ORDERED: Scopolamine Patch 1.5 MG PATCH.TD72 TD ONE (06:11)
[2021-07-20 07:20] VITALS: BP 146/76; PULSE 97; RESP 18; TEMP 98.2; O2SAT 85
[2021-07-20] MEDS ORDERED: Morphine Sulfate Oral CONC 10 MG/0.5 ML ORAL.SYG SL SCH (08:00)
[2021-07-20] MEDS ORDERED: FLUoxetine 20 MG CAPSULE PO SCH (09:00)
[2021-07-20] MEDS ORDERED: Cholecalciferol (D-3) 1,000 UNIT (25MCG) TABLET PO SCH (09:00)
[2021-07-20] MEDS ORDERED: Aspirin 81 MG TAB.CHEW PO SCH (09:00)
[2021-07-20] MEDS: Pregabalin 50 MG CAPSULE PO SCH (09:05)
[2021-07-20] MEDS: Apixaban 2.5 MG TABLET PO SCH (09:05)
[2021-07-20] MEDS ORDERED: Atropine Sulfate 1% 40 DROP/2 ML BOTTLE SL PRN (10:14)
[2021-07-20] MEDS: cefTRIAXone 1,000 MG in 0.9 % Sodium Chloride Mini Bag 100 ML IVPB SCH (10:36)
[2021-07-20] MEDS: Azithromycin 500 MG in 0.9 % Sodium Chloride 250 ML IVPB SCH (10:37)
== END 2021-07-20 11:21 | disposition hospice, inpatient (51) | DRG 177 ==
LOC: INPGRE 08:01 → EMEROOGRE 08:01 → INPGRE 16:59
PROVIDERS: ADMIT Family Medicine; ATTEND Family Medicine

== ENCOUNTER 2021-07-20 11:39 | Inpatient (IN) ==
[2021-07-20] MEDS ORDERED: Morphine Sulfate Oral CONC 10 MG/0.5 ML ORAL.SYG SL PRN (12:43)
[2021-07-20] MEDS ORDERED: *HR* LORazepam Oral Conc 2 MG/ML SL PRN (12:43)
[2021-07-20] MEDS ORDERED: Atropine Sulfate 1% 40 DROP/2 ML BOTTLE SL PRN (12:44)
[2021-07-20] MEDS ORDERED: Scopolamine Patch 1.5 MG PATCH.TD72 TD SCH (12:45)
[2021-07-20] MEDS ORDERED: *HR* LORazepam 2 MG/ML VIAL IVP PRN (13:43)
[2021-07-20] MEDS ORDERED: Ipratropium/Albuterol Neb 3 ML IH PRN (13:43)
[2021-07-20] MEDS ORDERED: Acetaminophen 650 MG RECTAL SUPP RC PRN (13:43)
[2021-07-20] MEDS ORDERED: Ondansetron 4 MG/2 ML VIAL IVP PRN (13:43)
[2021-07-20] MEDS ORDERED: Morphine Sulfate Oral CONC 10 MG/0.5 ML ORAL.SYG SL SCH (14:00)
[2021-07-20] MEDS: *HR* LORazepam Oral Conc 2 MG/ML SL SCH ×2 (15:37→18:03)
[2021-07-20] MEDS: Atropine Sulfate 1% 40 DROP/2 ML BOTTLE SL PRN ×2 (15:38→18:04)
[2021-07-20] MEDS ORDERED: Morphine Sulfate 2 MG/ML SYRINGE IVP PRN (15:44)
[2021-07-20] MEDS: Morphine Sulfate Oral CONC 10 MG/0.5 ML ORAL.SYG SL PRN ×3 (16:19→18:03)
== END 2021-07-20 19:11 | disposition expired | DRG 951 ==
LOC: INPGRE 11:42
PROVIDERS: ADMIT Family Medicine; ATTEND Family Medicine